=== PATIENT | female | born 1980 | race Caucasian/White ===

== ENCOUNTER 2016-06-01 14:10 | Emergency (ER) | payer OTHER ==
[~2016-06-01] VITALS: Ht 165.1 cm; Wt 77.0 kg
[~2016-06-01 14:10] MED LIST: PRE NATAL VITAMINS PO
[2016-06-01 14:13] VITALS: Ht 165.1 cm; Wt 77.0 kg
[2016-06-01] MEDS ORDERED: EPP3/2 IM (14:35)
[2016-06-01] MEDS ORDERED: SODI0.9S IV (14:35)
[2016-06-01] MEDS ORDERED: DIPH1TAB PO (14:35)
[2016-06-01] MEDS ORDERED: [UNRECOGNIZED DRUG - CODE] IV (14:35)
[2016-06-01] MEDS ORDERED: PREG100C PO (14:35)
[2016-06-01] MEDS ORDERED: ACET-1311 PO (14:35)
[2016-06-01] MEDS ORDERED: HPRF5 IV (14:35)
[2016-06-01] MEDS ORDERED: DiphenhydrAMINE HCL 50 MG/ML VIAL IV STA (14:38)
[2016-06-01] MEDS ORDERED: SODIUM CHLORIDE 0.9% 1000ML 1,000 ML IV STA (14:38)
[2016-06-01] MEDS ORDERED: PROCHLORPERAZINE 5 MG/ML 2 ML VIAL IV STA (14:38)
[2016-06-01 15:10] LABS: HEMATOCRIT 38.9 % (37-47); MEAN CELL VOLUME 81.9 fL (80-100); MEAN CORPUSCULAR HEMOGLOBIN 27.8 pg (25-34); MEAN CORPUSCULAR HGB CONC 33.9 g/dl (32-36); MEAN PLATELET VOLUME 10.4 fL (7.4-10.4); PLATELET COUNT 208 K/uL (130-400); RED BLOOD COUNT 4.75 M/uL (4.2-5.4); WHITE BLOOD COUNT 10.28 K/uL (4.8-10.8)
--- NOTE | 2016-06-01 15:18 | DIAGNOSTIC IMAGING REPORT ---
CT SCAN OF THE BRAIN WITHOUT IV CONTRAST CLINICAL HISTORY: Headache. COMPARISON STUDY: No priors. TECHNIQUE: Unenhanced axial CT scan of the brain is performed from the vertex to the skull base. Automated dose control exposure was utilized. CT DOSE: 537.48 mGy.cm FINDINGS: Brain parenchyma: The brain parenchyma is normal in appearance. There is no hemorrhage, mass effect, or evidence of acute territorial ischemia by CT criteria. Myrick-white matter is preserved. No extra-axial fluid collection is seen. Ventricles, sulci, cisterns: Normal in configuration. Intracranial vasculature: The visualized intracranial vasculature at the skull base is normal in appearance. Calvarium: Unremarkable. Sinuses and mastoids: The visualized paranasal sinuses are clear. The mastoid air cells are well pneumatized. Orbits: The bony orbits are grossly intact. IMPRESSION: No acute intracranial abnormality. Electronically signed by: Eusebio Peña M.D. 06/01/2016 3:17 PM Dictated Date/Time: 06/01/2016 3:15 PM
[2016-06-01 15:20] LABS: PROTHROMBIN TIME (PATIENT) 10.6 SECONDS (9.0-12.0)
[2016-06-01 15:29] LABS: ALT/SGPT 17 U/L (12-78); AST/SGOT 11 U/L (15-37); BLOOD UREA NITROGEN 10 mg/dl (7-18); BUN/CREATININE RATIO 13.9 (10-20); CALCIUM 8.7 mg/dl (8.5-10.1); CARBON DIOXIDE 25 mmol/L (21-32); CHLORIDE 105 mmol/L (98-107); CREATININE 0.74 mg/dl (0.60-1.20); GLUCOSE 101 mg/dl (70-99); POTASSIUM 3.8 mmol/L (3.5-5.1); SODIUM 139 mmol/L (136-145)
[2016-06-01 15:31] LABS: ALKALINE PHOSPHATASE 48 U/L (45-117); BASO % 0.1 %; BASO ABS # 0.01 K/uL (0-0.2); COMPLETE YES; IG% 0.2 %; LYMPH % 7.6 %; LYMPH ABS # 0.78 K/uL (1.2-3.4); MONO % 3.2 %; NEUT % 88.9 %
[2016-06-01] MEDS ORDERED: MAGNESIUM SULFATE 1GM / D5W 1 GM BAG IV STA (15:57)
[2016-06-01 16:05] LABS: LYME DISEASE AB IGG POS (NEG); LYME DISEASE AB IGM NEG (NEG)
[2016-06-01 16:54] VITALS: TEMP 37.6
[2016-06-01] MEDS ORDERED: PROM1SUP19 PR (17:36)
[2016-06-01 17:44] VITALS: BP 123/73; PULSE 87; O2SAT 99
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
[2016-06-04 16:59] LABS: 18KDIGG BAND REACTIVE (NONREACTIVE); 23KDIGG BAND NONREACTIVE (NONREACTIVE); 23KDIGM BAND NONREACTIVE (NONREACTIVE); 28KDIGG BAND REACTIVE (NONREACTIVE); 30KDIGG BAND REACTIVE (NONREACTIVE); 39KDIGG BAND REACTIVE (NONREACTIVE); 39KDIGM BAND NONREACTIVE (NONREACTIVE); 41KDIGG BAND REACTIVE (NONREACTIVE); 41KDIGM BAND NONREACTIVE (NONREACTIVE); 45KDIGG BAND REACTIVE (NONREACTIVE); 58KDIGG BAND REACTIVE (NONREACTIVE); 66KDIGG BAND REACTIVE (NONREACTIVE); 93KDIGG BAND REACTIVE (NONREACTIVE)
== END 2016-06-01 17:46 | disposition home or self-care (01) ==
LOC: C.EDB 14:12 → C.EDA 17:46
DX: R51 Headache (principal); A69.20 Lyme disease, unspecified; R11.2 Nausea with vomiting, unspecified; G61.81 Chronic inflammatory demyelinating polyneuritis; Z79.899 Other long term (current) drug therapy; Z95.9 Presence of cardiac and vascular implant and graft, unspecified; Z82.49 Family history of ischemic heart disease and other diseases of the circulatory system; Z83.3 Family history of diabetes mellitus; Z83.6 Family history of other diseases of the respiratory system; Z83.79 Family history of other diseases of the digestive system; Z84.1 Family history of disorders of kidney and ureter

== ENCOUNTER 2018-08-31 11:16 | Inpatient (IN) ==
[2018-08-31] MEDS ORDERED: OXYTOCIN 30 UNITS/500 ML BAG IV PRN ×3 (11:51→17:14)
[2018-08-31] MEDS: LACTATED RINGER'S 1,000 ML IV PRN ×2 (12:00→13:07)
[2018-08-31] MEDS ORDERED: BUPIVACAINE 0.25% 30 ML VIAL ONE (12:26)
[2018-08-31] MEDS ORDERED: fentaNYL citrate 100 MCG/2 ML VIAL ONE (12:27)
[2018-08-31] MEDS ORDERED: ePHEDrine sulfate 50 MG/ML AMP ONE (12:27)
[2018-08-31] MEDS ORDERED: fentaNYL 2MCG/ML ROPIV 1.25MG/ML 100 ML BAG EPI ONE (12:28)
[2018-08-31 12:36] LABS: Hematocrit (blood only) 33.3 % (37-47); Hemoglobin 10.8 g/dL (12.0-16.0); Mean Corpuscular Hgb Conc 32.4 g/dL (32-36); Mean Corpuscular Volume 82.2 fL (80-100); Mean Platelet Volume 12.5 fL (7.4-10.4); Platelet Count 116 K/uL (130-400); Platelet Estimate Normal (Normal); RDW Coefficient of Variation 14.5 % (11.5-14.5); RDW Standard Deviation 43.4 fL (36.4-46.3); Red Blood Count 4.05 M/uL (4.2-5.4); White Blood Count 8.78 K/uL (4.8-10.8)
--- NOTE | 2018-08-31 12:58 | Anesthesiology Consultation ---
Date of Service August 31, 2018 Assessment & Plan (1) Encounter for pre-operative examination: Chart Review Chart Review: Patient NOT seen in Pre Admission Testing and Acceptable Risk for Labor Epidural Consults Requested none History Height/Weight Height: 5 ft 5 in Weight: 97.069 kg Allergies Allergy/AdvReac Type Severity Reaction Status Date / Time paroxetine AdvReac Severe "OUT OF MY Verified 08/21/18 13:39 HEAD" Medications Home Medications Medication Instructions Recorded Confirmed Last Taken PNV cmb#95-ferrous fumarate-FA 1 tab PO DAILY 08/21/18 08/31/18 08/31/18 08:00 [] Active Medications Generic Name Dose Route Start Last Admin Trade Name Freq PRN Reason Stop Dose Admin Lactated Ringer's 1,000 mls @ 125 mls/hr 08/31/18 11:51 08/31/18 13:07 Lr IV 09/02/18 11:50 125 mls/hr .Q8H PRN Administration L&D Protocol Protocol Past Medical History Medical History CIDP (chronic inflammatory demyelinating polyneuropathy) (Chronic) Positive Lyme disease serology (Acute) Odontalgia (Inactive) hand tingling, shoulder neuropathy. no breathing issues. no lower extremity deficits. Exercise / Class Metabolic Activity II 4-5 Yardwork/Stairs/Walk up hill Past Family History Family History Other No known health problems Past Anesthesia History No Hx of Anesthesia Complications and No Family Hx of Anesthesia Complications History of PONV No Hx of PONV and No Hx of Motion Sickness Social History Smoking Status: Never smoker Hx Alcohol Use: No Hx Substance Use: No Physical Exam Vital Signs Last Vital Signs Temp 37.1 C 08/31/18 12:50 Pulse 88 08/31/18 12:54 Resp 20 08/31/18 12:50 BP 114/66 08/31/18 12:50 Pulse Ox 99 08/31/18 12:54 Testing Laboratory Results 08/31/18 12:02
[2018-08-31] MEDS ORDERED: NALOXONE HCL 0.4 MG/1 ML VIAL/CARP IV PRN (14:24)
[2018-08-31] MEDS ORDERED: ePHEDrine sulfate 50 MG/ML AMP IV PRN (14:24)
[2018-08-31] MEDS ORDERED: NALBUPHINE HCL INJ 10 MG/ML AMP IV PRN (14:24)
[2018-08-31] MEDS ORDERED: DiphenhydrAMINE HCL 50 MG/ML VIAL IV PRN (14:24)
[2018-08-31] MEDS ORDERED: fentaNYL 2MCG/ML ROPIV 1.25MG/ML 100 ML BAG EPI PRN (14:24)
[2018-08-31] MEDS ORDERED: ONDANSETRON INJ 2 MG/ML 2 ML VIAL IV PRN (14:24)
[2018-08-31] MEDS ORDERED: NALOXONE HCL 1 MG in SODIUM CHLORIDE 0.9% 1000ML 1,000 ML IV PRN (14:24)
[2018-08-31] MEDS ORDERED: METHYLERGONOVINE MALEATE 0.2 MG/ML AMP ONE (17:11)
[2018-08-31] MEDS ORDERED: SUPERCREAM 0.870% 15 GM JAR EXT PRN (17:14)
[2018-08-31] MEDS ORDERED: ACETAMINOPHEN 325 MG TAB PO PRN (17:14)
[2018-08-31] MEDS ORDERED: OXYCODONE/ACETAMINOPHEN 5mg/325mg TAB PO PRN (17:14)
[2018-08-31] MEDS ORDERED: ACETAMINOPHEN W/CODEINE #3 1 TAB PO PRN (17:14)
[2018-08-31] MEDS ORDERED: BISACODYL 10 MG SUPP PR PRN (17:14)
[2018-08-31] MEDS ORDERED: BENZOCAINE 20% AER SPR 82.5 GM CAN EXT PRN (17:14)
[2018-08-31] MEDS ORDERED: METHYLERGONOVINE MALEATE 0.2 MG/ML AMP IM ONE (17:14)
[2018-08-31] MEDS ORDERED: HYDROCORTISONE ACETATE 25 MG SUPP PR PRN (17:14)
[2018-08-31] MEDS ORDERED: DIPHTHERIA/TETANUS/PERTUSSIS 0.5 ML SYR/VIAL IM ONE (17:14)
--- NOTE | 2018-08-31 18:34 | Anesthesia Procedure Note ---
Date of Service August 31, 2018 Anesthesia Post Epidural Note Vital Signs Vital Signs: Temp Pulse Resp BP Pulse Ox 37 C 71 20 120/57 L 97 08/31/18 17:15 08/31/18 18:32 08/31/18 18:15 08/31/18 18:32 08/31/18 16:49 Pain Intensity Abdomen: Pain Intensity: 7 Notes Mental Status: alert / awake / arousable Patient Amnestic to Procedure: No Nausea / Vomiting: adequately controlled Pain: adequately controlled Airway Patency, RR, SpO2: stable & adequate BP & HR: stable & adequate Hydration State: stable & adequate Neuraxial Anesthesia: was administered and sensory block is resolving Anesthetic Complications: no major complications apparent and Pt Satisfied with anesthetic care Epidural: Removed without complications and With tip intact
[2018-08-31] MEDS: DOCUSATE SODIUM 100 MG CAP PO SCH (20:11)
[2018-08-31] MEDS: IBUPROFEN 600 MG TAB PO PRN (22:55)
--- NOTE | 2018-08-31 23:27 | Delivery Summary ---
DATE OF OPERATION: 08/31/2018 DELIVERY NOTE This is a 38-year-old 4, para 3. She had a history of incompetent cervix and a loss in at 23 weeks gestation. She had a cervical cerclage placed at [facility] in [place] at 14 weeks. Following this, she did well. She had Celestone twice, once at about 26 weeks and once at about 32 weeks. Blood type is O positive, rubella immune. Due date is 09/22/2018. Was hospitalized about 10 days prior to admission with contractions every 8 minutes. We tried to stop them, she continued to contract, the cervical cerclage was then cut. She was sent home, was about 3 cm. She was having contractions every 4-5 minutes on admission. She was 5 cm with bulging membranes. When she was about 5-6, membranes were ruptured surgically, fluid was clear. We then went to IV Pitocin to augment her contractions. She had epidural anesthesia at about 5-6 cm. She obtained good pain relief. With a slow steady push, brought down the head, crowned it. cord blood was taken. With IV Pitocin running, the placenta was removed intact. Inspection of the perineum revealed a first-degree laceration. The vaginal mucosa was approximated to out and beyond the hymenal ring with a continuous suture of heavy Vicryl. A deep suture was used to approximate the bulbocavernosus muscles and 2 deep sutures used to approximate the perineal body. Following this, a running subcuticular suture was used to approximate the perineal skin edges. Vag exam including rectovaginal examination revealed no hematoma formation or stitches through the rectum. The patient tolerated the procedure well. Estimated blood loss was 300 mL. Apgars will be deferred to the nurses. I attest to the content of the Intraoperative Record and any orders documented therein. Any exceptions are noted below. THIEN
[2018-09-01] MEDS: IBUPROFEN 600 MG TAB PO PRN ×4 (03:41→23:30)
[2018-09-01 06:31] LABS: Hematocrit (blood only) 31.9 % (37-47); Hemoglobin 10.1 g/dL (12.0-16.0); Mean Corpuscular Hgb Conc 31.7 g/dL (32-36); Mean Corpuscular Volume 82.2 fL (80-100); Mean Platelet Volume 12.4 fL (7.4-10.4); Platelet Count 96 K/uL (130-400); RDW Coefficient of Variation 14.4 % (11.5-14.5); RDW Standard Deviation 43.2 fL (36.4-46.3); Red Blood Count 3.88 M/uL (4.2-5.4); White Blood Count 10.11 K/uL (4.8-10.8)
[2018-09-01 07:10] LABS: Platelet Estimate Decreased (Normal)
[2018-09-01] MEDS: PRENATAL VITAMIN 1 TAB PO SCH (09:01)
[2018-09-01] MEDS: DOCUSATE SODIUM 100 MG CAP PO SCH ×2 (09:01→20:39)
--- NOTE | 2018-09-01 12:12 | Obstetrical Progress Note ---
Date of Service September 01, 2018 Physical Exam Physical Exam: abdomen soft and non tender vaginal bleeding scant to moderate no calf tenderness ambulating well Results & Data Vital Signs (Past 12 Hours) Vital Signs Temp Pulse Resp BP 09/01/18 07:45 36.9 C 76 20 107/68 09/01/18 03:40 37 C 64 18 108/64
[2018-09-01] MEDS ORDERED: BISACODYL 5 MG TABEC PO SCH (20:00)
[2018-09-02] MEDS: IBUPROFEN 600 MG TAB PO PRN ×2 (06:27→15:54)
[2018-09-02 07:22] LABS: Hemoglobin 10.8 g/dL (12.0-16.0)
[2018-09-02] MEDS: DOCUSATE SODIUM 100 MG CAP PO SCH (08:38)
[2018-09-02] MEDS: PRENATAL VITAMIN 1 TAB PO SCH (08:38)
--- NOTE | 2018-09-02 08:51 | Obstetrical Progress Note ---
Date of Service September 02, 2018 Physical Exam Physical Exam: abdomen soft and non tender vaginal bleeding scant to moderate no calf tenderness ambulating well Results & Data Vital Signs (Past 12 Hours) Vital Signs Temp Pulse Resp BP 09/02/18 07:30 37.4 C 86 20 112/75 09/01/18 23:32 37.0 C 81 18 117/74
== END 2018-09-02 18:41 | disposition home or self-care (01) | DRG 807 ==
LOC: OPB 11:16 → 4S1 11:18 → 4S2 19:35